=== PATIENT | female | born 1940 | race Caucasian/White ===

== ENCOUNTER 2020-12-29 08:12 | Day surgery (SDC) | payer MEDICARE, SELFPAY ==
[2020-12-23 14:51] LABS: Hematocrit 39.9 % (37-47); Hemoglobin 12.7 g/dL (12.0-15.0); Mean Corp Hgb Conc 31.8 g/dL (32-36); Mean Corpuscular Volume 88.1 fL (81-99); Mean Platelet Vol. 11.5 fl (6.2-12.0); Platelet Count 274 K/mm3 (150-450); RBC Distribution Width CV 14.9 % (11.6-14.6); RBC Distribution Width SD 48.7 fl (35.1-43.9); Red Blood Count 4.53 M/mm3 (4.2-5.4); White Blood Count 8.6 K/mm3 (4.4-11.0)
[2020-12-23 15:15] LABS: Anion Gap 7 (5-15); BUN 16 mg/dL (7-18); BUN/Creat Ratio 25.5 RATIO (10-20); Calcium,Total 8.8 mg/dL (8.5-10.1); Chloride 105 mmol/L (98-107); Creatinine, Serum 0.63 mg/dL (0.55-1.02); EST Glomerular Filtration Rate 97 mL/min (>60); Est Glom Filt Rate - Afr Amer 117 mL/min (>60); Glucose 99 mg/dL (74-106); Potassium 3.9 mmol/L (3.5-5.1); Sodium Level 139 mmol/L (136-145)
[2020-12-29] VITALS (8 sets, daily range): BP systolic 139–169; BP diastolic 64–84; PULSE 54–73; RESP 16; TEMP 18.4–35.7; O2SAT 96–100; BMI 31.4
[2020-12-29] MEDS: Lactated Ringers 1,000 ML 15 ML IV (08:30)
[2020-12-29] MEDS: Vancomycin IV 1,000 MG/200 ML BAG 200 MG IV (09:02)
--- NOTE | 2020-12-29 09:40 | RAD_ITS ---
STUDY: INTRAOPERATIVE FLUOROSCOPY TECHNIQUE: The examination was performed with referring physician in attendance. Under fluoroscopic observation, fluoroscopic images were obtained. Radiologist was not present for the study. Radiologist did not perform the procedure. This dictation is for documentation of the radiation dosage only. There is no interpretation of the images. TOTAL NUMBER OF IMAGES: 1 COMPARISON: None RADIATION DOSE: 24.8 mGy FLUOROSCOPY TIME: 30.3 seconds REASON FOR EXAM: INTERSTIM THERAPY 1 Female, 80 years old. FINDINGS: There is a right side sided subcutaneous implanted electronic leads extending into the sacral region. This is likely an interstimulator. RAD/Pelvis 1 or 2 Views IMPRESSION: Fluoroscopic assistance images were obtained. Dictation for documentation purposes only. Electronically Signed: Neo Augustin MD at 17:08 EST , Service support ,
[2020-12-29] MEDS: Lidocaine 1% /Epi 1:100 (50ml) 50 ML VIAL (11:05)
--- NOTE | 2020-12-29 11:49 | PCM.DC ---
Discharge Instructions Diet Discharge Diet: No restrictions Activity Discharge Activity: May Not Shower May resume sexual activity in: 3 weeks Additional Activity Instructions:: avoid pushing, pulling and bending. Dressing / Incision Call your doctor if your incision/area has: Continuous Slow Oozing, Sudden Increased Bleeding, Increased Pain/ Swelling, Increased Redness and Swelling at the incision site Call your doctor if you observe: Fever of 101 or Higher, Inability to urinate, Inability to have a bowel movement and Uncontrolled pain Suture Line Care: Avoid Pulling/Pushing and Avoid Pinching/Bending Change Dressing in: do not change dressing Follow Up Care Please Follow Up With: Joelle Ramirez MD When: 1 week Test Results: Test results from this visit will be discussed in further detail at your follow-up appointment, if applicable. Discharge Plan Admission Attending Provider: Joelle Ramirez Discharge Orders/Prescriptions Prescriptions: New oxycodone-acetaminophen [Percocet] 5-325 mg tablet 1 tab PO Q8H PRN (Reason: pain) 3 Days Qty: 10 RF: 0 cephalexin [cephalexin] 500 MG capsule 500 mg PO Q12 3 Days Qty: 6 RF: 0 Continued multivitamin Tablet 1 tab PO DAILY RF: 0 amlodipine 5 mg Tablet 5 mg PO QHS RF: 0 ascorbic acid (vitamin C) [Vitamin C] 500 mg Tablet 500 mg PO DAILY RF: 0 nortriptyline 10 mg Capsule 10 mg PO QHS RF: 0 gabapentin 300 mg Tablet 300 mg PO TID PRN PRN (Reason: neuropathy) RF: 0 melatonin 5 mg Tablet 5 mg PO QHS RF: 0 cholecalciferol (vitamin D3) [Vitamin D3] 125 mcg (5,000 unit) Tablet 250 mcg PO MOTUWETHFR RF: 0 Hylands Leg Cramp Pm 2 cap PO/SL QHS RF: 0 Referrals / Follow Up: LETI AMBRIZ [Other] Disposition Disposition (needs filled in before D/C Order can be placed): Home, Self Care
--- NOTE | 2020-12-29 11:52 | OP.PCM_ITS ---
Problems Associated Problem List Diagnoses (1) Frequency of micturition: (2) Urge incontinence: Report of Operation Date of Procedure: 12/29/20 Pre-Operative Diagnosis: Urinary frequency, urge incontinence Post-Operative Diagnosis: Same Surgery/Procedure Performed:: InterStim stage I Surgeon: Joelle Ramirez Type of Anesthesia: [facility] [place] Description of Procedure: The patient is a 80-year-old female who has failed level 1 and 2 management for her urge incontinence, urinary frequency. She now presents for InterStim stage I after undergoing urodynamics and office cystoscopy. Informed consent was obtained. Patient was taken to the operating room and placed in a prone position on the operating room table. She was appropriately supported, padded and secured to the table. Once anesthesia was appropriately administered she was prepped and draped in usual sterile fashion. At this time the C arm was used for fluoroscopic outline of her sacral anatomy. The area overlying her left S3 foramen was infiltrated with 1% lidocaine with epinephrine. The needle was then inserted through the skin through the S3 foramen into the pelvis. Testing revealed alba response and toe flexion. The guidewire was then placed and an incision was made in the skin. The dilator was then passed followed by the lead which was inserted using the curved stylette. The dilator was then backed off. The leads were all tested was significant response on leads I, II and III and intermittently toe flexion on leads 0. Fluoroscopic visualization revealed good positioning of the lead pelvis. The pocket site was chosen and infiltrated with local anesthetic. The incision was made in the skin followed by Bovie cautery as the pocket site was enlarged. The lead was then tunneled into the pocket site. The tunneling device was then used to pass to the contralateral side of her back where a small skin frederick was made to allow the lead extension to pass easily into the pocket site. The lead was dried and inserted into the lead extension and secured using the torque wrench. The lead extension was coiled and secured using a Prolene suture. It was then placed into the pocket site which was closed with 3-0 interrupted Vicryl suture followed by 4-0 subcuticular suturing and skin glue. This closure process was performed on the lead insertion site and a small suture was placed at the extension exit site. At this time everything was connected and secured to her back using an OpSite and cloth tape. She was then awakened and taken to the recovery room in good condition. There were no complications during this procedure. Grafts/Implants Used: InterStim lead and lead extension Complications None Admit VTE Documentation VTE Present on Admission: Yes VTE Mechan Device Prophylaxis: SCD's VTE Pharm Prophylaxis ordered?: No Reason prophylaxis not ordered:: Treatment Not Indicated
== END 2020-12-29 23:59 | disposition home or self-care (01) ==
LOC: SDC 08:18 → AC 08:20
PROVIDERS: Visit Provider Urology
PROC: (CPT 64581; principal; 2020-12-29 09:30)
DX: R35.0 Frequency of micturition (principal); N39.41 Urge incontinence; I10 Essential (primary) hypertension; R35.1 Nocturia; Z79.899 Other long term (current) drug therapy
CPT/HCPCS: 00630; 64581; 36415; 72170; 76000; 80048; 85027; 93005; J7120; A4216; J2405

== ENCOUNTER 2021-01-12 09:51 | Day surgery (SDC) | payer MEDICARE, SELFPAY ==
--- NOTE | 2020-12-23 14:08 | EKG12_ITS ---
Test Reason : PREOP Blood Pressure : / mmHG Vent. Rate : 055 BPM Atrial Rate : 055 BPM P-R Int : 160 ms QRS Dur : 108 ms QT Int : 416 ms P-R-T Axes : 030 -21 022 degrees QTc Int : 397 ms Sinus bradycardia Incomplete left bundle branch block Consider Voltage criteria for left ventricular hypertrophy Abnormal ECG Confirmed by NKECHI HAGEN, JOLEEN ([id number]), state editor AL CHOUDHURY ([id number]) on 12/24/2020 8:49:42 AM Referred By: LEONEL Confirmed By:JOLEEN ARBOLEDA MD
[2021-01-12 10:30] VITALS: BP 171/67; PULSE 81; RESP 16; TEMP 36.6; O2SAT 99; BMI 30.9
[2021-01-12] MEDS: Lactated Ringers 1,000 ML 15 ML IV (10:35)
[2021-01-12] MEDS: Vancomycin IV 1,000 MG/200 ML BAG 200 MG IV (10:36)
--- NOTE | 2021-01-12 10:56 | PCM.OPRPT ---
Problems Associated Problem List Diagnoses (1) Frequency of micturition: (2) Urge incontinence: Report of Operation Date of Procedure: 01/12/21 Pre-Operative Diagnosis: Urinary frequency and urge incontinence Post-Operative Diagnosis: Same Surgery/Procedure Performed:: InterStim stage II Surgeon: Joelle Ramirez Type of Anesthesia: MAC Description of Procedure: The patient is an 81-year-old female with a successful stage I InterStim for management of her urinary frequency and urge incontinence. She now presents for stage II InterStim. Informed consent was obtained. The patient was taken to the operating room placed on the operating room table in a prone position. She was appropriately padded and secured to the table. Anesthesia monitored the head, neck, airway, IV access and vital signs throughout the case. Once anesthesia was appropriately administered the patient was prepped and draped in usual sterile fashion. The incision over the boot was infiltrated with local anesthetic. The incision was opened with hemostats and the sutures were cut with scissors. The boot was brought into the operative field. There is no evidence of infection. The pocket was irrigated. At this time the lead extension was removed from the lead and the field entirely. The pocket was enlarged and hemostasis was achieved with Bovie cautery. The lead was then dried and inserted into the IPG. It was secured using the torque wrench. The IPG was then placed into the pocket and impedances were tested and found to be appropriate. The incision was closed using 3-0 Vicryl interrupted sutures followed by 4-0 subcuticular suturing and Dermabond was placed on the skin. Once this was dried, the patient was awakened and taken to the recovery room in good condition. There were no complications during this procedure. Grafts/Implants Used: InterStim IPG Complications None Admit VTE Documentation VTE Present on Admission: Yes VTE Mechan Device Prophylaxis: SCD's VTE Pharm Prophylaxis ordered?: No Reason prophylaxis not ordered:: Treatment Not Indicated
--- NOTE | 2021-01-12 11:09 | PCM.DC ---
Discharge Instructions Diet Discharge Diet: No restrictions Activity Discharge Activity: May Shower Dressing / Incision Call your doctor if your incision/area has: Continuous Slow Oozing, Sudden Increased Bleeding, Increased Pain/ Swelling, Increased Redness, Foul Smelling Discharge and Swelling at the incision site Call your doctor if you observe: Fever of 101 or Higher, Inability to urinate, Inability to have a bowel movement and Uncontrolled pain Suture Line Care: Avoid Pulling/Pushing Cleanse incision/area with: Soap & Water Additional Dressing/Incision Instructions:: do not peel off skin glue, let it fall off. Follow Up Care Please Follow Up With: Joelle Ramirez MD When: call office for appt to be seen in 2-3 weeks Test Results: Test results from this visit will be discussed in further detail at your follow-up appointment, if applicable. Discharge Plan Admission Attending Provider: Joelle Ramirez Discharge Orders/Prescriptions Prescriptions: Continued multivitamin Tablet 1 tab PO DAILY RF: 0 amlodipine 5 mg Tablet 5 mg PO QHS RF: 0 ascorbic acid (vitamin C) [Vitamin C] 500 mg Tablet 500 mg PO DAILY RF: 0 nortriptyline 10 mg Capsule 10 mg PO QHS RF: 0 gabapentin 300 mg Tablet 300 mg PO TID PRN PRN (Reason: neuropathy) RF: 0 melatonin 5 mg Tablet 5 mg PO QHS RF: 0 cholecalciferol (vitamin D3) [Vitamin D3] 125 mcg (5,000 unit) Tablet 250 mcg PO MOTUWETHFR RF: 0 Hylands Leg Cramp Pm 2 cap PO/SL QHS RF: 0 cephalexin 500 MG capsule 500 mg PO Q12 3 Days Qty: 6 RF: 0 Changed oxycodone-acetaminophen [Percocet] 5-325 mg tablet 2 tab PO Q8H PRN (Reason: pain) 3 Days Qty: 10 RF: 0 Referrals / Follow Up: LETI AMBRIZ [Other] Disposition Disposition (needs filled in before D/C Order can be placed): Home, Self Care
[2021-01-12] MEDS: Lidocaine 1% /Epi 1:100 (20ml) 20 ML Vial (11:19)
[2021-01-12 11:40] VITALS: BP 126/56; BP 171/67; PULSE 60; RESP 14; TEMP 36.3; O2SAT 100
[2021-01-12 11:45] VITALS: BP 132/54; BP 171/67; PULSE 55; RESP 12; O2SAT 100
[2021-01-12 11:50] VITALS: BP 131/60; BP 171/67; PULSE 56; RESP 14; O2SAT 100
[2021-01-12 11:59] VITALS: BP 137/57; BP 171/67; PULSE 53; RESP 14; O2SAT 100
[2021-01-12 13:01] VITALS: BP 159/55; BP 171/67; PULSE 55; RESP 16; TEMP 36.2; O2SAT 98
== END 2021-01-12 23:59 | disposition home or self-care (01) ==
LOC: SDC 09:53 → AC 09:54
PROVIDERS: Visit Provider Urology
PROC: (CPT 300; principal; 2021-01-12 11:15)
DX: R35.0 Frequency of micturition (principal); N39.41 Urge incontinence; I10 Essential (primary) hypertension; Z79.899 Other long term (current) drug therapy
CPT/HCPCS: 00300; 64590; 36415; 80048; 85027; 93005; J7120; C1767